=== PATIENT | female | born 1960 | race Caucasian/White ===

== ENCOUNTER 2021-05-24 12:21 | Emergency (ER) | payer OTHER, SELFPAY ==
--- NOTE | ~2021-05-24 | XR_ITS ---
EXAMINATION: XR finger 3rd LT min 2V EXAM DATE: 05/24/2021 12:48 INDICATION: has redness to entire left 3rd finger ? etiology. TECHNIQUE: Left 3rd finger frontal, lateral and oblique projections obtained and reviewed. There i s no prior study for comparison. FINDINGS: There are no acute left 3rd finger fractures or dislocations identified. There is no subcu taneous gas. There may be swelling over the entire digit. There are no radiopaque foreign bodies. There are no bony erosions identified. IMPRESSION: Left 3rd finger soft tissue swelling without osseous change. Reviewed, dictated and finalized at location A. LLE TRANSLATOR
[2021-05-24 12:32] VITALS: BP 151/88; PULSE 89; RESP 16; TEMP 37.3; O2SAT 98
--- NOTE | 2021-05-24 12:34 | ED.UPPEXIN ---
HPI - Extremity Injury (Upper) General Chief Complaint: Extremity Injury, Upper Stated Complaint: left 3rd finger redness/swelling Time Seen by Provider: 05/24/21 12:34 Source: patient and RN notes reviewed Mode of arrival: ambulatory Limitations: no limitations History of Present Illness HPI narrative: [facility] with redness and swelling to the left middle finger with tenderness and swelling of the PIP joint. Has full range of motion. Sensation intact distal to injury. Capillary refill under 2 seconds. Related Data Home Medications Medication Instructions Recorded Confirmed alprazolam [Xanax] 0.25 mg PO TID PRN 05/24/21 05/24/21 bupropion HCl [Wellbutrin XL] 300 mg PO DAILY 05/24/21 05/24/21 celecoxib [Celebrex] 200 mg PO BID 05/24/21 05/24/21 cyclobenzaprine [Flexeril] 10 mg PO HS 05/24/21 05/24/21 docusate sodium 50 mg PO DAILY 05/24/21 05/24/21 estradiol [Vagifem] 10 mcg VAGINAL 2XW 05/24/21 05/24/21 fluoxetine [Prozac] 40 mg PO DAILY 05/24/21 05/24/21 fluticasone propionate [Flonase] 2 spray INTRANASAL DAILY 05/24/21 05/24/21 furosemide [Lasix] 20 mg PO DAILY 05/24/21 05/24/21 hydrocodone-acetaminophen 1 tablet PO Q6H PRN 05/24/21 05/24/21 levothyroxine [Synthroid] 150 mcg PO DAILY 05/24/21 05/24/21 loratadine [Claritin] 10 mg PO DAILY 05/24/21 05/24/21 magnesium 250 mg PO DAILY 05/24/21 05/24/21 meclizine 25 mg PO BID 05/24/21 05/24/21 omeprazole 20 mg PO DAILY 05/24/21 05/24/21 oxybutynin chloride [Ditropan] 5 mg PO DAILY 05/24/21 05/24/21 Allergies Allergy/AdvReac Type Severity Reaction Status Date / Time Penicillins Allergy Hives Verified 05/24/21 13:09 Review of Systems Review of Systems: All systems reviewed & are unremarkable except as noted in HPI and below Constitutional: Constitutional: Reports no additional constitutional complaints ENT: Reports system reviewed and no additional complaints, except as documented Cardiovascular: Cardiovascular: Reports no additional cardiovascular complaints Respiratory: Respiratory: Reports no additional respiratory complaints Gastrointestinal: Gastrointestinal: Reports no additional gastrointestinal complaints Musculoskeletal: Musculoskeletal: Reports as per HPI and Reports joint swelling (PIP left middle finger) Integumentary/Breasts: Skin/Breast: Reports as per HPI and Reports erythema (Left middle finger) Neurologic: Reports system reviewed and no additional complaints, except as documented Psychiatric: Psychiatric: Reports no additional psychiatric complaints Allergic/Immunologic: Allergic/Immunologic: Reports no additional allergic/immunologic complaints PMFSH Past Medical History Medical History (Updated 05/25/21 @ 13:57 by Jenna Mackenzie) Anxiety CHF (congestive heart failure) Constipation Depression H/O gastroesophageal reflux (GERD) Hypertension Seasonal allergies Thyroid disease Vertigo Social History Social History (Updated 05/25/21 @ 13:56 by Jenna Mackenzie) Living arrangements: with family Gender identity (if verbalized by the patient): Female Comments At the time of my signature, I reviewed and agree with the nursing past medical, surgical, social, and family history. There is no relevant family history pertinent to the patient complaint. Exam Const: General: no acute distress Nutritional Appearance: well nourished and obese Orientation/consciousness: patient oriented x3 HENMT: Head: normal to inspection Eyes: Pupils: Equal, round and reactive pupils present Neck: Neck: normal visual inspection, no lymphadenopathy and no meningeal signs Chest: Chest palpation & inspection: normal inspection of the chest Resp: Effort & Inspection: normal respiratory effort and no use of accessory muscles Auscultation: clear to auscultation bilaterally, no crackles, no rales, no rhonchi and no wheezes Cardio: Rate: regular rate Rhythm: regular rhythm Back/Spine/Pelvis: Back: no CVA tenderness Skin: Rashes: no rashes Ne
== END 2021-05-24 13:50 | disposition home or self-care (01) ==
PROVIDERS: Emergency Provider Nurse Practitioner
DX: S63.613A Unspecified sprain of left middle finger, initial encounter (principal); X58.XXXA Exposure to other specified factors, initial encounter; I11.0 Hypertensive heart disease with heart failure; I50.9 Heart failure, unspecified; K21.9 Gastro-esophageal reflux disease without esophagitis; E07.9 Disorder of thyroid, unspecified; F41.9 Anxiety disorder, unspecified; F32.A Depression, unspecified
CPT/HCPCS: 29130; 73140; 99203; G0463